=== PATIENT | female | born 1980 | race African-American/Black ===

== ENCOUNTER 2019-11-18 08:04 | Emergency (ER) | payer OTHER ==
[~2019-11-18] VITALS: Ht 157.5 cm; Wt 66.0 kg
[2019-11-18] MEDS ORDERED: PREN1CHW PO (08:11)
[2019-11-18 08:54] LABS: HEMATOCRIT 37.9 % (36.0-47.0); HEMOGLOBIN 12.1 g/dl (12.0-15.5); MEAN CORPUSCULAR HEMOGLOBIN 29.5 pg (27.0-33.0); MEAN CORPUSCULAR HGB CONC 31.9 g/dl (32.0-36.5); MEAN CORPUSCULAR VOLUME 92.4 fl (80.0-96.0); PLATELET COUNT, AUTOMATED 307 10^3/uL (150-450); WHITE BLOOD COUNT 7.1 10^3/uL (4.0-10.0)
[2019-11-18 09:12] LABS: APPEARANCE, URINE CLEAR (CLEAR); BACTERIA, URINE AUTO 1+ (NEGATIVE); BILIRUBIN, URINE AUTO NEGATIVE (NEGATIVE); BLOOD, URINE BLOOD 2+ (NEGATIVE); COLOR, URINE YELLOW (YELLOW); GLUCOSE, URINE (UA) AUTO NEGATIVE (NEGATIVE); KETONE, URINE AUTO NEGATIVE (NEGATIVE); LEUKOCYTE ESTERASE, URINE AUTO NEGATIVE (NEGATIVE); MUCUS, URINE SMALL (NEGATIVE); NITRITE, URINE AUTO NEGATIVE (NEGATIVE); PROTEIN, URINE AUTO NEGATIVE (NEGATIVE); RBC, URINE AUTO 9 /HPF (0-3); SQUAMOUS EPITHELIAL CELL UR AU 0 /HPF (0-6); UROBILINOGEN, URINE AUTO 0.2 mg/dL (0.0-2.0); WBC, URINE AUTO 0 /HPF (0-3)
[2019-11-18] MEDS ORDERED: KEFL500C17 PO (09:17)
--- NOTE | 2019-11-18 09:23 | REPVR ---
PROCEDURE INFORMATION: Exam: US First Trimester, Transabdominal Exam date and time: 11/18/2019 8:58 AM Age: 39 years old Clinical indication: Lmp or gestational age (in weeks): 09/26/2019; Antepartum complications; Bleeding; ; Additional info: Vaginal bleeding TECHNIQUE: Imaging protocol: Real-time transabdominal obstetrical ultrasound of the maternal pelvis and a first trimester , less than 14 weeks 0 days, with image documentation. COMPARISON: No relevant prior studies available. FINDINGS: Gestation: Single live intrauterine with visualization of the intrauterine gestational sac, yolk sac and pole. Embryonic/ heart rate: heart rate 153 bpm. Placenta: No subchorionic bleed. Amniotic fluid: Amniotic fluid is normal for gestational age. BIOMETRY: Gestational age (AUA): Ultrasound gestational age 7 weeks 2 days. Estimated due date (AUA): ALPHONSE 07/04/2020. [place]-Rump length: [place]-rump length 11.2 mm. MATERNAL: Uterus: Unremarkable. Cervix: Unremarkable. Right adnexa: Right ovary measures 2.0 x 1.3 x 2.3 cm and is unremarkable. Blood flow present within the right ovary. Left adnexa: Left ovary measures 3.2 x 2.2 x 3.6 cm and contains a 2.6 cm cyst, likely corpus luteum. Blood flow present within the left ovary. Intraperitoneal space: No intraperitoneal free fluid. IMPRESSION: Single viable IUP with ultrasound gestational age of 7 weeks 2 days based on crown-rump length. This is concordant with dates by LMP. Electronically signed by: García De Anda On 11/18/2019 09:23:14 AM
[2019-11-18 09:46] VITALS: BP 131/69
[2019-11-18 10:46] LABS: CHLAMYDIA DNA AMPLIFICATION NEGATIVE (NEGATIVE); GC DNA AMPLIFICATION NEGATIVE (NEGATIVE)
[2019-11-20] MEDS ORDERED: MACR100C43 PO (18:05)
== END 2019-11-18 09:47 | disposition home or self-care (01) ==
LOC: M ED 08:04
DX: O20.0 Threatened abortion (principal); O23.41 Unspecified infection of urinary tract in pregnancy, first trimester; R82.71 Bacteriuria; Z3A.01 Less than 8 weeks gestation of pregnancy; Z79.899 Other long term (current) drug therapy

== ENCOUNTER 2020-06-15 15:12 | Inpatient (IN) | payer OTHER ==
[~2020-06-15] VITALS: Ht 157.5 cm; Wt 70.3 kg
[~2020-06-15 15:12] MED LIST: KEFL500C17 PO; MACR100C43 PO; PREN1CHW PO
[2020-06-15] MEDS ORDERED: LR 500 ML IV SCH (16:00)
[2020-06-15] MEDS ORDERED: BICITRA 30ML SOLN UDC PO ONE (16:00)
[2020-06-15] MEDS ORDERED: BUPIVACAINE HCL 0.25% 30ML VIAL SC ONE (16:00)
[2020-06-15] MEDS ORDERED: ceFAZolin SOD 2 GM in IV 1 EA IV ONE (16:00)
[2020-06-15 16:24] LABS: HEMATOCRIT 38.7 % (36.0-47.0); HEMOGLOBIN 11.9 g/dl (12.0-15.5); MEAN CORPUSCULAR HEMOGLOBIN 26.9 pg (27.0-33.0); MEAN CORPUSCULAR HGB CONC 30.7 g/dl (32.0-36.5); MEAN CORPUSCULAR VOLUME 87.6 fl (80.0-96.0); PLATELET COUNT, AUTOMATED 331 10^3/uL (150-450); RED BLOOD COUNT 4.42 10^6/uL (4.00-5.40); WHITE BLOOD COUNT 10.9 10^3/uL (4.0-10.0)
[2020-06-15] MEDS ORDERED: OXYTOCIN INJ 10 UNITS/ML VIAL (J2590) As Ordered ONE (16:24)
[2020-06-15] MEDS ORDERED: MORPHINE PRES-FREE INJ 10 MG/10 ML VIAL (J2274) As Ordered ONE (16:28)
[2020-06-15 16:29] VITALS: BP 95/52
[2020-06-15] MEDS ORDERED: dexameTHASONE 4 MG/ML 1ML VIAL (J1100 PER 1MG) As Ordered ONE (16:30)
[2020-06-15] MEDS ORDERED: ONDANSETRON 4MG/2ML VIAL As Ordered ONE (16:30)
[2020-06-15 17:12] VITALS: BP 111/60
--- NOTE | 2020-06-15 17:27 | ROOPDOC ---
[facility] Report Of Operation Report of Operation DATE OF PROCEDURE: 06/15/20 PREPROCEDURE DIAGNOSES: history of myomectomy, bipolar disorder, IVF , advanced maternal age, exvessive weight gain of , gestational diabetes POSTPROCEDURE DIAGNOSES: same PROCEDURE: repeat delivery SURGEON: Chris Kerns DO SEARCH OPTIMIZATION ANALYST: Domonique Hernandez CNM ANESTHESIA: epidural ESTIMATED BLOOD LOSS: Approximately 600 mL. COMPLICATIONS: none REMARKS: none PROCEDURE NOTE: APGARS 6/8/9 Weight 3230g The risks, benefits and alternatives of the procedure were discussed and written consent was obtained. The patient was given 2 g of Ancef prior to the procedure. She was taken to the OR where she was positioned supine with a left lateral tilt. The abdomen was prepped and draped in a sterile fashion and a Huang catheter was placed in the bladder. A final time out was performed. The anesthesia was tested to be adequate. An incision was made through the existing Pfannenstiel scar with a scalpel and carried to the fascia. The fascia was then scored and the incision extended in a curvilinear a linear fashion with the curved Black scissors. The upper edge of the fascia was grasped with [place] clamps 2 and the muscle was dissected from the fascia with blunt dissection and with the scalpel. The same procedure was repeated on the lower fascial edge. The muscles were in the midline bluntly and the peritoneum bluntly entered and extended. There was no intra-abdominal adhesions palpable and the bladder was well below the operative site. The bladder blade was placed. The lower uterine segment was identified and a bladder flap was made with the Metzenbaum scissors. The bladder blade was replaced. Using a new scalpel the uterus was incised in a curved linear fashion in the lower uterine segment transversely. The head was brought to the hysterotomy and with the aid of abdominal pressure, the head was delivered atraumatically followed by the corpus without difficulty. The cord was clamped 2 and the baby was handed to the pediatric team. The baby had spontaneous movement and cry. The cord blood and gases were obtained. The placenta was delivered with the aid of gentle downward traction and manual extraction. The uterus was then exteriorized. The uterus was then cleansed with a lap of any remaining membranes. The hysterotomy was then closed with 0 Monocryl in a running locking fashion. An imbricating layer was then performed with 0 Monocryl in a running fashion. The left corner of the hysterotomy required a figure of 8 sutures 3 for hemostasis. The pool suction and a moist lap were used to clean the posterior cul-de-sac. The bilateral ovaries and fallopian tubes appeared normal. The uterus appeared normal with the exception of the myomectomy scar which was fundal, extending to the anterior lower segment. The uterus was replaced into the abdomen and the h ysterotomy reviewed off tension to be hemostatic. The gutters were then cleaned with a moist lap bilaterally and the surgical site was reinspected to be hemostatic. The muscles were also inspected to be hemostatic. The fascia was then closed with 0 Vicryl in a running fashion. The subcutaneous tissue was copiously irrigated and it was inspected to be hemostatic. The tissue was then closed with 3-0 Vicryl in a running fashion. The skin was reapproximated with 4-0 Monocryl and secured with Steri-Strips and opti foam. A uterine sweep was performed and vaginal bleeding was noted to be scant. The sponge, lap and needle counts were correct 2. There were no complications and the patient tolerated the procedure well. CHRIS KERNS DO June 15, 2020 17:27
--- NOTE | 2020-06-15 17:34 | ROOPDOC ---
[facility] [place] Report of Operation DATE OF PROCEDURE: 06/15/20 PREPROCEDURE DIAGNOSES: history of delivery, growth restriction, oligohydraminos POSTPROCEDURE DIAGNOSES: same PROCEDURE: repeat delivery SURGEON: Richmond Kerns DO TEACHER SELECTION SPECIALIST: Ivelisse Pacheco CNM ANESTHESIA: epidural ESTIMATED BLOOD LOSS: Approximately 600 mL. COMPLICATIONS: none REMARKS: none PROCEDURE NOTE: APGARS 9/9 Weight 2640g The risks, benefits and alternatives of the procedure were discussed and written consent was obtained. The patient was given 2 g of Ancef prior to the procedure. She was taken to the OR where she was positioned supine with a left lateral tilt. The abdomen was prepped and draped in a sterile fashion and a Huang catheter was placed in the bladder. A final time out was performed. The anesthesia was tested to be adequate. An incision was made through the existing Pfannenstiel scar with a scalpel and carried to the fascia. The fascia was then scored and the incision extended in a curvilinear a linear fashion with the curved Black scissors. The upper edge of the fascia was grasped with Bonilla clamps 2 and the muscle was dissected from the fascia with blunt dissection and with the scalpel. The same procedure was repeated on the lower fascial edge. The muscles were in the midline bluntly and the peritoneum bluntly entered and extended. There was no intra-abdominal adhesions palpable and the bladder was well below the operative site. The bladder blade was placed. The lower uterine segment was identified and a bladder flap was made with the Metzenbaum scissors. The bladder blade was replaced. Using a new scalpel the uterus was incised in a curved linear fashion in the lower uterine segment transversely. The head was brought to the hysterotomy and with the aid of abdominal pressure, the head was delivered atraumatically followed by the corpus without difficulty. The cord was clamped 2 and the baby was handed to the pediatric team. The baby had spontaneous movement and cry. The cord blood and gases were obtained. The placenta was delivered with the aid of gentle downward traction and manual extraction. The uterus was then exteriorized. The uterus was then cleansed with a lap of any remaining membranes. The hysterotomy was then closed with 0 Monocryl in a running locking fashion. An imbricating layer was then performed with 0 Monocryl in a running fashion. The pool suction and a moist lap were used to clean the posterior cul-de-sac. The bilateral ovaries and fallopian tubes appeared normal. The uterus appeared normal. The uterus was replaced into the abdomen and the hysterotomy reviewed off tension to be hemostatic. The gutters were then cleaned with a moist lap bilaterally and the surgical site was reinspected to be hemostatic. The muscles were also inspected to be hemostatic. Leon was applied to the surgical sites. The peritoneum was reapproximated with vicryl. The fascia was then closed with 0 Vicryl in a running fashion. The subcutaneous tissue was copiously irrigated and it was inspected to be hemostatic. The patient was too thin for a subcutaneous closure. The left side of the incision had some edema causing difficulties with reapproximation so n approx 3mm wedge was removed from the uperior portion to include the underlying fat pad with the bovie. The skin was then reapproximated with 4-0 Monocryl and secured with Steri-Strips and a pressure dressing. A uterine sweep was performed and vaginal bleeding was noted to be scant. The sponge, lap and needle counts were correct 2. There were no complications and the patient tolerated the procedure well. RICHMOND KERNS DO June 15, 2020 17:34
[2020-06-15] MEDS ORDERED: NALBUPHINE HCL 10 MG/ML AMP (J2300) IV PRN (17:52)
[2020-06-15] MEDS ORDERED: NALOXONE INJ 0.4MG/1ML VIAL (J2310 PER 1MG) IV PRN ×2 (17:52)
[2020-06-15] MEDS ORDERED: ONDANSETRON 4MG/2ML VIAL IV PRN ×2 (17:52→19:40)
[2020-06-15] MEDS ORDERED: diphenhydrAMINE 50MG/ML VIAL (J1200) IV PRN (17:52)
[2020-06-15] MEDS ORDERED: METOCLOPRAMIDE INJ 10MG/2ML VIAL (J2765 PER 1) IV PRN ×2 (17:52→19:40)
[2020-06-15] MEDS ORDERED: PHENYLephrine 500MCG 5ML (100MCG/ML) SYRINGE As Ordered ONE (17:59)
[2020-06-15] MEDS ORDERED: METOCLOPRAMIDE INJ 10MG/2ML VIAL (J2765 PER 1) As Ordered ONE (18:21)
[2020-06-15] MEDS ORDERED: propofoL 200 MG/20 ML VIAL As Ordered ONE ×2 (18:33→18:54)
[2020-06-15 18:38] LABS: CORD GAS ABE V -4.5; CORD GAS HCO3 V 20.9 MEQ/L; CORD GAS O2 SAT V 82.8 %; CORD GAS PCO2 V 39.5 mmHg; CORD GAS PH V 7.341 UNITS; CORD GAS PO2 V 38.4 mmHg; CORD GAS SBC V 20.5 MEQ/L; CORD GAS TCO2 V 22.1 MEQ/L
[2020-06-15 18:41] LABS: CORD GAS ABE A -7.3; CORD GAS HCO3 A 19.2 MEQ/L; CORD GAS O2 SAT A 99.2 %; CORD GAS PCO2 A 41.9 mmHg; CORD GAS PH A 7.278 UNITS; CORD GAS PO2 A 108.3 mmHg; CORD GAS SBC A 18.7 MEQ/L; CORD GAS TCO2 A 20.4 MEQ/L
[2020-06-15] MEDS ORDERED: OXYTOCIN 30 UNITS IN 0.9% NaCl 500ML IV BAG (J2590) As Ordered ONE (18:54)
[2020-06-15] MEDS ORDERED: KETOROLAC 60MG 2ML VIAL As Ordered ONE (18:59)
[2020-06-15] MEDS ORDERED: ACETAMINOPHEN TAB 650MG DOSE (2X325MG) PO PRN (19:30)
[2020-06-15] MEDS ORDERED: ACETAMINOPHEN 500 MG TAB PO PRN (19:30)
[2020-06-15] MEDS ORDERED: OXYTOCIN DRIP 30 UNITS in IV 1 EA IV SCH (19:30)
[2020-06-15] MEDS ORDERED: oxyCODONE 5MG TAB PO PRN (19:30)
[2020-06-15] MEDS ORDERED: PERCOCET 5MG/325MG TAB PO PRN (19:40)
[2020-06-15] MEDS ORDERED: fentaNYL 100 MCG/2 ML INJECTION (J3010) IV PRN (19:40)
[2020-06-15] MEDS ORDERED: LR 1,000 ML IV SCH (19:40)
[2020-06-15] MEDS ORDERED: PERCOCET 5MG/325MG TAB As Ordered ONE (19:58)
[2020-06-15 21:30] VITALS: BP 118/66
[2020-06-15] MEDS: DOCUSATE SODIUM 100MG CAPSULE PO SCH (21:40)
[2020-06-15] MEDS: oxyCODONE 5MG TAB PO PRN (21:41)
[2020-06-15 22:00] VITALS: BP 119/62
[2020-06-15 22:30] VITALS: BP 106/56
[2020-06-15 23:30] VITALS: BP 108/57
[2020-06-16] VITALS (7 sets, daily range): BP systolic 100–116; BP diastolic 55–59
[2020-06-16 00:09] LABS: HEMATOCRIT 33.6 % (36.0-47.0); HEMOGLOBIN 10.6 g/dl (12.0-15.5); MEAN CORPUSCULAR HEMOGLOBIN 26.8 pg (27.0-33.0); MEAN CORPUSCULAR HGB CONC 31.5 g/dl (32.0-36.5); MEAN CORPUSCULAR VOLUME 84.8 fl (80.0-96.0); PLATELET COUNT, AUTOMATED 332 10^3/uL (150-450); RED BLOOD COUNT 3.96 10^6/uL (4.00-5.40)
[2020-06-16 00:42] LABS: ALBUMIN 2.3 GM/DL (3.2-5.2); ALT/SGPT 17 U/L (12-78); BILIRUBIN,TOTAL 0.5 MG/DL (0.2-1.0); BLOOD UREA NITROGEN 7 MG/DL (7-18); CALCIUM LEVEL 8.9 MG/DL (8.5-10.1); CARBON DIOXIDE LEVEL 23 MEQ/L (21-32); CHLORIDE LEVEL 107 MEQ/L (98-107); CREATININE FOR GFR 0.48 MG/DL (0.55-1.30); GLOMERULAR FILTRATION RATE > 60.0 (>60); GLUCOSE, FASTING 112 MG/DL (70-100); SODIUM LEVEL 136 MEQ/L (136-145)
[2020-06-16] MEDS: IBUPROFEN 800 MG TAB PO SCH ×3 (03:52→20:26)
--- NOTE | 2020-06-16 07:02 | IPNPDOC ---
Progress Note Date of Service: June 16, 2020 Day#: 1 Progress Note SUBJECT: Ms. Ornelas is a 39yo who is post-operative day 1 after a repeat delivery at 38 weeks for growth restriction complicated with oligohydraminos. She has been ambulating and tolerating regular diet. She is due to void at 1000. Breast feeding without issue. Reports lochia is like a normal period. Patient is ambulating well. Reports some cramping with . Denies any pain. Voiding and passing flatus without difficulty. Problems List 1. gestational hypertension, normal tox labs 2. gestational diabetes, diet controlled OBJECTIVE: VITAL SIGNS: Within normal limits, afebrile. Alert and oriented times three. No increased WOB Heart rate: non-tachycardic Abdomen: Fundus firm at U-1. Soft, NTTP. Pressure dressing removed. Pfannenstiel incision is clean dry and well approximated with steri strips. [Minimal] lochia. ASSESSMENT: Ms. Ornelas is a 39yo who is post-operative day 1 after a repeat delivery at 38 weeks for growth restriction complicated with oligohydraminos. Vitals within normal limits (blood pressure normotensive to mild range), afebrile, hemodynamically stable with no evidence of infection. PLAN: 1. Discharge to home today. 2. Tylenol and Motrin for pain. 3. Encourage breast feeding and ambulation. 4. Minipill ordered for contraception 5. Routine PP visit in 6 weeks in clinic. Patient also to return in 72h for blood pressure check. 6. Discussed return precautions at length. Discussed return precautions for symptoms of pre-eclampsia. 7. Plan for glucose tolerance test in 6 weeks. VS, I&O, 24H, [place] Vital Signs/I&O Vital Signs Date Time Temp Pulse Resp B/P (MAP) Pulse Ox O2 Delivery O2 Flow Rate FiO2 06/16/20 06:00 98.3 70 16 104/59 (74) 100 Room Air I&O- Last 24 Hours up to 6 AM 06/16/20 06:00 Intake Total 400 ml Output Total 995 ml Balance -595 ml Laboratory Data 24H LABS Laboratory Tests 2 06/15/20 15:37: Serology Scanned Report Hepatitis B Testing 06/15/20 16:08: Nucleated Red Blood Cells % (auto) 0.0, Syphilis Serology NONREACTIVE 06/15/20 16:20: Bedside Glucose (Misc Panel) 62L 06/15/20 16:29: Coronavirus (COVID-19)(PCR) NEGATIVE 06/15/20 18:25: Cord Arterial Blood pH 7.278, Cord Arterial Blood PCO2 41.9, Cord Arterial Blood PO2 108.3, Cord Arterial Blood HCO3 19.2, Cord Arterial Blood Total CO2 20.4, Cord Arterial Blood Base Excess -7.3, Cord Arterial Base Excess (Standard 18.7, Cord Arterial Bld Oxygen Saturation 99.2, Cord Venous Blood pH 7.341, Cord Venous Blood PCO2 39.5, Cord Venous Blood PO2 38.4, Cord Venous Blood HCO3 20.9, Cord Venous Blood Total CO2 22.1, Cord Venous Base Excess (Actual) -4.5, Cord Venous Base Excess (Standard) 20.5, Cord Venous Blood Oxygen Saturation 82.8 06/15/20 23:52: Nucleated Red Blood Cells % (auto) 0.0, Anion Gap 6L, Glomerular Filtration Rate > 60.0, Calcium Level 8.9, Total Bilirubin 0.5, Aspartate Amino Transf (AST/SGOT) 22, Alanine Aminotransferase (ALT/SGPT) 17, Alkaline Phosphatase 144H, Total Protein 6.0L, Albumin 2.3L, Albumin/Globulin Ratio 0.6L 06/15/20 23:54: Urine Random Creatinine 234.0, Urine Random Total Protein 67.9H CBC/BMP Laboratory Tests 06/15/20 16:08 06/15/20 23:52 RICHMOND KERNS DO June 16, 2020 07:02
--- NOTE | 2020-06-16 07:04 | OBDS ---
[facility] Obstetrical Discharge Sum. A/P, Post Course List any complications Ms. Ornelas is a 39yo who is post-operative day 1 after a repeat delivery at 38 weeks for growth restriction complicated with oligohydraminos. APGARS 9/9, Weight 2640g. She has been ambulating, voiding, and tolerating regular diet. Breast feeding without issue. Reports lochia is like a normal period. Patient is ambulating well. Reports some cramping with breastfee ding. Denies any pain. Voiding and passing flatus without difficulty. Vitals within normal limits (blood pressure normotensive to mild range), afebrile, hemodynamically stable with no evidence of infection. Problems List 1. gestational hypertension, normal tox labs 2. gestational diabetes, diet controlled PLAN: 1. Discharge to home today. 2. Tylenol and Motrin for pain. 3. Encourage breast feeding and ambulation. 4. Minipill ordered for contraception 5. Routine PP visit in 6 weeks in clinic. Patient also to return in 72h for blood pressure check. 6. Discussed return precautions at length. Discussed return precautions for symptoms of pre-eclampsia. 7. Plan for glucose tolerance test in 6 weeks. RICHMOND KERNS DO June 16, 2020 07:04
[2020-06-16] MEDS: DOCUSATE SODIUM 100MG CAPSULE PO SCH ×2 (10:06→20:26)
[2020-06-16] MEDS: PRENATAL VITAMINS CHEWABLE TABLET PO SCH (10:06)
[2020-06-16] MEDS: oxyCODONE 5MG TAB PO PRN (16:00)
--- NOTE | 2020-06-16 16:47 | IPN ---
PROGRESS NOTE DATE: 06/16/2020 This patient requested circumcision of her male . After discussing risks and benefits of circumcision, the medical, and the nonmedical indications, the penile block and aftercare; expressed understanding of penile block, aftercare, and bleeding. Signed the consent form. All questions were answered, 20 minute discussion. We await the clearance by the commercial loan officer.
[2020-06-16] MEDS: SIMETHICONE 80MG CHEW TAB PO PRN (20:39)
[2020-06-17 01:50] VITALS: BP 116/60
[2020-06-17] MEDS: IBUPROFEN 800 MG TAB PO SCH ×2 (03:39→11:44)
[2020-06-17] MEDS: SIMETHICONE 80MG CHEW TAB PO PRN (03:43)
[2020-06-17 05:54] VITALS: BP 103/57
--- NOTE | 2020-06-17 07:45 | IPNPDOC ---
Progress Note Date of Service: June 17, 2020 Day#: 2 Progress Note SUBJECT: Ms. Ornelas is a 39yo who is post-operative day 2 after a repeat delivery at 38 weeks for growth restriction complicated with oligohydraminos. She has been ambulating and tolerating regular diet. She is due to void at 1000. Breast feeding without issue. Reports lochia is like a normal period. Patient is ambulating well. Reports some cramping with . Denies any pain. Voiding and passing flatus yesterday without difficulty, reports today she feels like she needs to but cannot. Problems List 1. gestational hypertension, normal tox labs 2. gestational diabetes, diet controlled OBJECTIVE: VITAL SIGNS: Within normal limits, afebrile. Alert and oriented times three. No increased WOB Heart rate: non-tachycardic Abdomen: Fundus firm at U-1. Soft, NTTP. Pfannenstiel incision is clean dry and well approximated with steri strips. [Minimal] lochia. ASSESSMENT: Ms. Ornelas is a 39yo who is post-operative day 2 after a re peat delivery at 38 weeks for growth restriction complicated with oligohydraminos. Vitals within normal limits (blood pressure normotensive to mild range), afebrile, hemodynamically stable with no evidence of infection. PLAN: 1. Discharge to home today after passes flatus. 2. Tylenol and Motrin for pain. 3. Encourage breast feeding and ambulation. 4. Minipill ordered for contraception 5. Routine PP visit in 6 weeks in clinic. Patient also to return in 72h for blood pressure check. 6. Discussed return precautions at length. Discussed return precautions for symptoms of pre-eclampsia. 7. Plan for glucose tolerance test in 6 weeks. VS, I&O, 24H, Fishbone Vital Signs/I&O Vital Signs Date Time Temp Pulse Resp B/P (MAP) Pulse Ox O2 Delivery O2 Flow Rate FiO2 06/17/20 05:54 99.3 87 18 103/57 (72) 06/17/20 01:50 96 Room Air I&O- Last 24 Hours up to 6 AM 06/17/20 06:00 Output Total 675 ml Balance -675 ml RICHMOND KERNS DO June 17, 2020 07:45
[2020-06-17] MEDS: PRENATAL VITAMINS CHEWABLE TABLET PO SCH (08:26)
[2020-06-17] MEDS: DOCUSATE SODIUM 100MG CAPSULE PO SCH (08:26)
== END 2020-06-17 12:45 | disposition home or self-care (01) | DRG 772 ==
LOC: M LDI 15:12 → M OBS 21:37
PROVIDERS: ADMIT Obstetrics & Gynecology; ATTEND Obstetrics & Gynecology
PROC: 10D00Z1 Extraction of Products of Conception, Low, Open Approach (ICD-10-PCS; principal; 2020-06-15 17:30)
DX: O34.211 Maternal care for low transverse scar from previous cesarean delivery (principal); O41.03X0 Oligohydramnios, third trimester, not applicable or unspecified; O36.5930 Maternal care for other known or suspected poor fetal growth, third trimester, not applicable or unspecified; O09.513 Supervision of elderly primigravida, third trimester; Z3A.38 38 weeks gestation of pregnancy; Z37.0 Single live birth; O13.4 Gestational [pregnancy-induced] hypertension without significant proteinuria, complicating childbirth; O24.420 Gestational diabetes mellitus in childbirth, diet controlled